=== PATIENT | female | born 1930 | race Caucasian/White ===

== ENCOUNTER → 2017-08-31 | Outpatient (CLI) | payer MEDICARE, OTHER ==
[~2017-08-31] MED LIST: ALBU90OI61 INH; ALEN70 PO; AMLO5 PO; ASPI325 PO; BUDE6HFA INH; Benicar5 MG PO; CEFD300 PO; CEPH500 PO; CHOL10002 PO; CLOT10 SS; DIGO.125 PO; ELIQUIS2.5 MG PO; ESTRTP VAG; FERR325 PO; FISH1000 PO; FURO20 PO; FURO80 PO; GUAI600T33 PO; LEVSOD100 PO; MECL12.5 PO; MECL25 PO; METO2.5 PO; NEBI10 PO; Norco 5-325 Ta1 EACH PO; OLME20 PO; POTA20LUD PO; POTCHL20ER PO; PROAIR RESPICL90 MCG IH; Pyridium200 MG PO; RANI150 PO; TIOT18; TIOT18 INH; TOLT2 PO; TOLT4 PO; WARF1 PO; WARF2 PO; WARF3 PO; Zofran Odt4 MG SL
[2017-08-31 19:01] LABS: Appearance, Urine Clear (Clear); Bilirubin, Urine Neg (Neg); Blood, Urine Neg (Neg); Color, Urine Yellow (P-Yellow); Glucose Qualitative, Urine Neg (Neg); Ketones, Urine Neg (Neg); Leukocyte Esterase, Urine Neg (Neg); Nitrite, Urine Neg (Neg); Protein, Urine Neg (Neg); Urobilinogen, Urine NORM (Normal)
== END | disposition home or self-care (01) ==
LOC: LAB SHORT 16:00 → LAB 16:00
PROVIDERS: Family Medicine
DX: N39.0 Urinary tract infection, site not specified (principal)
CPT/HCPCS: 81003; 87086

== ENCOUNTER → 2018-05-20 | Outpatient (CLI) | payer MEDICARE, OTHER ==
[2018-05-20 16:05] LABS: Appearance, Urine Clear (Clear); Bilirubin, Urine Neg (Neg); Blood, Urine Neg (Neg); Color, Urine Yellow (P-Yellow); Glucose Qualitative, Urine Neg (Neg); Ketones, Urine Neg (Neg); Leukocyte Esterase, Urine Neg (Neg); Nitrite, Urine Neg (Neg); Protein, Urine Neg (Neg); Specific Gravity, Urine 1.015 (1.003-1.022); Urobilinogen, Urine NORM (Normal)
== END | disposition home or self-care (01) ==
LOC: LAB 15:15 → LAB SHORT 15:15
PROVIDERS: Family Medicine
DX: R30.0 Dysuria (principal)
CPT/HCPCS: 81003; 87086

== ENCOUNTER → 2018-05-23 | Outpatient (CLI) | payer MEDICARE, OTHER ==
[2018-05-23 20:26] LABS: Bilirubin, Urine Neg (Neg); Blood, Urine 1+ (Neg); Glucose Qualitative, Urine Neg (Neg); Ketones, Urine Neg (Neg); Leukocyte Esterase, Urine Neg (Neg); Nitrite, Urine Neg (Neg); Protein, Urine Neg (Neg); Specific Gravity, Urine 1.015 (1.003-1.022); Urobilinogen, Urine NORM (Normal)
[2018-05-23 20:40] LABS: Appearance, Urine Clear (Clear); Color, Urine Yellow (P-Yellow)
[2018-05-23 20:41] LABS: Red Blood Cells, Urine 0-2 /hpf (0-2); White Blood Cells, Urine 0-2 /hpf (0-5)
[2018-05-23 20:42] LABS: Bacteria Few /hpf; Squamous Epithelial Cells Rare /hpf (Few)
== END ==
LOC: LAB 20:08 → LAB SHORT 20:08
PROVIDERS: Family Medicine
DX: N39.0 Urinary tract infection, site not specified (principal)
CPT/HCPCS: 81001; 87086

== ENCOUNTER → 2018-09-12 | Outpatient (CLI) | payer MEDICARE, OTHER ==
[2018-09-12 11:59] LABS: Bilirubin, Urine Neg (Neg); Blood, Urine Neg (Neg); Glucose Qualitative, Urine Neg (Neg); Ketones, Urine Neg (Neg); Leukocyte Esterase, Urine 1+ (Neg); Nitrite, Urine Neg (Neg); Protein, Urine Neg (Neg); Specific Gravity, Urine 1.015 (1.003-1.022); Urobilinogen, Urine NORM (Normal)
[2018-09-12 12:15] LABS: Appearance, Urine Clear (Clear); Color, Urine Yellow (P-Yellow)
[2018-09-12 12:16] LABS: Bacteria Few /hpf; Red Blood Cells, Urine 0-2 /hpf (0-2); Squamous Epithelial Cells Few /hpf (Few)
== END | disposition home or self-care (01) ==
LOC: LAB SHORT 11:30 → LAB 11:30
PROVIDERS: Family Medicine
DX: N39.0 Urinary tract infection, site not specified (principal)
CPT/HCPCS: 81001

== ENCOUNTER 2019-01-13 15:21 | Emergency (ER) | payer MEDICARE, OTHER ==
[~2019-01-13] VITALS: Ht 157.5 cm; Wt 68.0 kg
[2019-01-13] MEDS ORDERED: AMLO10 PO (15:32)
[2019-01-13] MEDS ORDERED: NEBI10 PO (15:32)
[2019-01-13] MEDS ORDERED: ELIQUIS2.5 MG PO (15:32)
[2019-01-13] MEDS ORDERED: FURO80 (15:33)
[2019-01-13] MEDS ORDERED: POTA20PAC (15:33)
[2019-01-13] MEDS ORDERED: OLME20 PO (15:33)
[2019-01-13] MEDS ORDERED: LEVSOD100 PO (15:33)
[2019-01-13] MEDS ORDERED: TIOT18 INH (15:34)
[2019-01-13] MEDS ORDERED: ALBU90OI INH (15:34)
[2019-01-13] MEDS ORDERED: Zantac150 MG PO (15:34)
[2019-01-13] MEDS ORDERED: BUDE6HFA INH (15:34)
[2019-01-13] MEDS ORDERED: Anti-Diarrheal2 MG (15:35)
[2019-01-13] MEDS ORDERED: ACET325 (15:35)
[2019-01-13] MEDS ORDERED: BISA10S PR (15:35)
[2019-01-13] MEDS ORDERED: Milk Of Ma400 MG/5 M (15:35)
[2019-01-13 15:58] LABS: Source, Urine Catheter
[2019-01-13 16:01] LABS: Bilirubin, Urine Neg (Neg); Blood, Urine Neg (Neg); Glucose Qualitative, Urine Neg (Neg); Ketones, Urine Neg (Neg); Leukocyte Esterase, Urine Neg (Neg); Nitrite, Urine Neg (Neg); Protein, Urine Neg (Neg); Urobilinogen, Urine NORM (Normal)
[2019-01-13 16:07] LABS: Appearance, Urine Clear (Clear); Color, Urine Yellow (P-Yellow)
== END 2019-01-13 16:25 | disposition home or self-care (01) ==
LOC: ER 15:21
PROVIDERS: Physician Assistant
DX: R41.0 Disorientation, unspecified (principal); I11.0 Hypertensive heart disease with heart failure; I50.9 Heart failure, unspecified; J44.9 Chronic obstructive pulmonary disease, unspecified; Z85.820 Personal history of malignant melanoma of skin; E03.9 Hypothyroidism, unspecified; I48.91 Unspecified atrial fibrillation; Z86.73 Personal history of transient ischemic attack (TIA), and cerebral infarction without residual deficits; Z79.899 Other long term (current) drug therapy; Z79.01 Long term (current) use of anticoagulants
CPT/HCPCS: 81003; 99283; P9612

== ENCOUNTER → 2019-02-17 | Outpatient (CLI) | payer MEDICARE, OTHER ==
[~2019-02-17] MED LIST changes: +ACET325; +ALBU90OI INH; +AMLO10 PO; +Anti-Diarrheal2 MG; +BISA10S PR; +FURO80; +Milk Of Ma400 MG/5 M; +POTA20PAC; +Zantac150 MG PO
[2019-02-17 11:41] LABS: Source, Urine Clean Catch
[2019-02-17 12:48] LABS: Bilirubin, Urine Neg (Neg); Blood, Urine 1+ (Neg); Glucose Qualitative, Urine Neg (Neg); Ketones, Urine Neg (Neg); Leukocyte Esterase, Urine 1+ (Neg); Nitrite, Urine Neg (Neg); Protein, Urine Neg (Neg); Specific Gravity, Urine 1.015 (1.003-1.022); Urobilinogen, Urine NORM (Normal); pH, Urine 6.5 (5.0-8.0)
[2019-02-17 13:00] LABS: Appearance, Urine Clear (Clear); Color, Urine Yellow (P-Yellow)
[2019-02-17 13:01] LABS: Bacteria Mod /hpf; Squamous Epithelial Cells Few /hpf (Few)
== END | disposition home or self-care (01) ==
LOC: LAB 11:39 → LAB SHORT 11:39
PROVIDERS: Family Medicine
DX: N39.0 Urinary tract infection, site not specified (principal)
CPT/HCPCS: 81001; 87086